=== PATIENT | female | born 1980 | race Caucasian/White ===

== ENCOUNTER → 2024-02-25 10:03 | Outpatient (REF) | payer BC, SELFPAY | LOC: HWRAD 10:03 | PROVIDERS: ATTENDING PHYSICIAN Family Medicine | DX: N83.299 Other ovarian cyst, unspecified side (principal); R35.0 Frequency of micturition | CPT/HCPCS: 76770; 76830; 76856 ==

== ENCOUNTER 2024-06-27 06:15 | Day surgery (SDC) | payer BC, SELFPAY ==
[2024-06-20 09:22] LABS: % Basophils 0.5 % (0-2); % Eosinophils 3.3 % (0-6); % Immature Granulocytes 0.2 % (0-0.5); % Lymphocytes 48.4 % (20.5-51.1); % Monocytes 7.7 % (1.7-9.3); % Neutrophils 39.9 % (42.2-75.2); Absolute Eosinophils 0.2 10^3/uL (0-0.7); Absolute Lymphocytes 2.6 10^3/uL (1.2-3.4); Absolute Monocytes 0.4 10^3/uL (0.1-0.6); Absolute Neutrophils 2.2 10^3/uL (1.4-6.5); Hematocrit 37.9 % (37.0-47.0); Hemoglobin 12.8 g/dL (12.0-16.0); Mean Corp Hgb Conc. 33.8 g/dL (33.0-37.0); Mean Corpuscular Hgb 30.5 pg (27.0-31.0); Mean Corpuscular Volume 90.5 fL (81.0-99.0); Mean Platelet Volume 10.8 fL (7.4-10.4); Nucleated Red Blood Cells % 0 %; Platelet Count 247 10^3/uL (130-400); Red Blood Cell Count 4.19 10^6/uL (4.20-5.40); Red Cell Dist. Width 12.2 % (11.5-14.5); White Blood Cell Count 5.5 10^3/uL (4.8-10.8)
[2024-06-20 09:25] LABS: INR 0.96
[2024-06-20 09:50] LABS: Blood Urea Nitrogen 12 mg/dl (7-17); Carbon Dioxide 24 mmol/L (22-30); Chloride 104 mmol/L (98-107); Glucose 88 mg/dl (70-99); Potassium 4.1 mmol/L (3.5-5.1); Sodium 138 mmol/L (135-145); eGFR > 60.00
[2024-06-20 10:06] LABS: Beta HCG Quantitative < 2.39 mIU/ml
[2024-06-20 13:13] VITALS: BMI 36.6
[2024-06-27] VITALS (10 sets, daily range): BP systolic 107–125; BP diastolic 67–79; BMI 36.6
[2024-06-27] MEDS: NEURONTIN 100 MG PO (07:20)
[2024-06-27] MEDS: TYLENOL 1000 MG PO (07:20)
[2024-06-27] MEDS: NORMOSOL-R/PLASMALYTE-A 1000 IV (07:21)
--- NOTE | 2024-06-27 09:55 | W.IMMPOSTOP ---
Surgical Immed Post Op Note
-
Primary Surgeon: Luciana Parson DO
Assisting Surgeon: BROOKLYN Freeman
Pre-op Diagnosis: Menorrhagia, severe dysmenorrhea, pelvic pain
Post-op Diagnosis: same; abdominal and pelvic adhesions
Procedure Performed: RA TLH b/l salpingectomy, extensive lysis adhesions
Anesthesia Type: general Dr. Benjamin
Specimen / Cultures: uterus, cervix and fallopian tubes
Estimated Blood Loss: 5ml
Urine output: 800ml clear yellow urine
Complications: none
Operative Findings: Normal appearing uterus and cervix. Fallopian tubes with small cysts on surface bilaterally, filmy adhesions to both ovaries. Ovaries with filmy adhesions to pelvic peritoneum and tubes. Large amount of omental adhesions to
abdominal wall extending across abdomen at level of umbilical plane extending all the way to the right side wall, anterior and inferior to umbilicus and toward left side. Adhesions of bladder anteriorly to upper uterus.
Counts correct times 2.
Stable to recovery.
[2024-06-27] MEDS: DILAUDID 0.5 MG IV (10:14)
--- NOTE | 2024-06-27 10:29 | SUR.PHASEI ---
patient received in pacu - moaning - c/o pain and urge to void. Explained that Still was just removed in OR. vss, medicated for pain by [employer] - insists on using bedpan. no results -medicated for pain.
[2024-06-27] MEDS: ZOFRAN 4 MG IV (10:41)
[2024-06-27] MEDS: TORADOL 15 MG IV (11:39)
== END 2024-06-27 14:15 | disposition home or self-care (01) ==
LOC: SDS 06:15
PROVIDERS: ATTENDING PHYSICIAN Obstetrics & Gynecology; FAMILY PHYSICIAN Family Medicine
DX: N92.0 Excessive and frequent menstruation with regular cycle (principal); N94.6 Dysmenorrhea, unspecified; R10.2 Pelvic and perineal pain; N73.6 Female pelvic peritoneal adhesions (postinfective); D25.9 Leiomyoma of uterus, unspecified; N83.8 Other noninflammatory disorders of ovary, fallopian tube and broad ligament; N70.11 Chronic salpingitis; N83.02 Follicular cyst of left ovary; E66.01 Morbid (severe) obesity due to excess calories; Z68.39 Body mass index [BMI] 39.0-39.9, adult
CPT/HCPCS: 58571; 88307; 36415; 80048; 84702; 85025; 85610; 86850; 86900; 86901

== ENCOUNTER 2024-07-21 14:58 | Emergency (ER) | payer BC, SELFPAY ==
[2024-07-21 15:06] VITALS: BP 117/75
[2024-07-21 15:30] LABS: % Basophils 0.8 % (0-2); % Eosinophils 2.7 % (0-6); % Immature Granulocytes 0.2 % (0-0.5); % Lymphocytes 38.4 % (20.5-51.1); % Monocytes 7.7 % (1.7-9.3); % Neutrophils 50.2 % (42.2-75.2); Absolute Basophils 0.1 10^3/uL (0-0.2); Absolute Eosinophils 0.2 10^3/uL (0-0.7); Absolute Lymphocytes 2.6 10^3/uL (1.2-3.4); Absolute Monocytes 0.5 10^3/uL (0.1-0.6); Absolute Neutrophils 3.4 10^3/uL (1.4-6.5); Hematocrit 38.5 % (37.0-47.0); Hemoglobin 13.4 g/dL (12.0-16.0); Mean Corp Hgb Conc. 34.8 g/dL (33.0-37.0); Mean Corpuscular Hgb 31.1 pg (27.0-31.0); Mean Corpuscular Volume 89.3 fL (81.0-99.0); Mean Platelet Volume 10.2 fL (7.4-10.4); Nucleated Red Blood Cells % 0 %; Platelet Count 251 10^3/uL (130-400); Red Blood Cell Count 4.31 10^6/uL (4.20-5.40); Red Cell Dist. Width 12.1 % (11.5-14.5); White Blood Cell Count 6.7 10^3/uL (4.8-10.8)
[2024-07-21 15:43] LABS: ALT (SGPT) 17 U/L (0-35); AST (SGOT) 17 U/L (14-36); Albumin 4.7 g/dl (3.5-5.0); Alkaline Phosphatase 76 U/L (38-126); Blood Urea Nitrogen 15 mg/dl (7-17); Calcium 9.5 mg/dl (8.4-10.2); Carbon Dioxide 25 mmol/L (22-30); Chloride 99 mmol/L (98-107); Glucose 97 mg/dl (70-99); Potassium 4.2 mmol/L (3.5-5.1); Sodium 131 mmol/L (135-145); Total Bilirubin 0.6 mg/dl (0.2-1.3); eGFR > 60.00
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
[2024-07-21 16:51] LABS: Urine Albumin Negative (Neg - Trace); Urine Bilirubin Negative (Negative); Urine Character Clear (Clear); Urine Color Yellow; Urine Glucose Negative (Negative); Urine Ketone Negative (Negative); Urine Leukocyte Negative (Negative); Urine Nitrite Negative (Negative); Urine Occult Blood Negative (Negative); Urine Specific Gravity 1.015 (<1.030); Urine Urobilinogen Negative (Neg - 1+)
[2024-07-21 18:16] VITALS: BP 170/74
== END 2024-07-21 19:24 | disposition home or self-care (01) ==
LOC: EMR 14:58
PROVIDERS: Physician Assistant; EMERGENCY PHYSICIAN Emergency Medicine; FAMILY PHYSICIAN Family Medicine
DX: G89.18 Other acute postprocedural pain (principal); R10.30 Lower abdominal pain, unspecified; Z90.710 Acquired absence of both cervix and uterus; Z90.49 Acquired absence of other specified parts of digestive tract
CPT/HCPCS: 99284; 74177; 80053; 81003; 85025; Q9967

== ENCOUNTER → 2025-02-10 10:09 | Outpatient (REF) | payer OTHER, SELFPAY ==
[2025-02-12 16:01] LABS: Varicella Zoster IgG (VZV) Positive
== END ==
LOC: OHS 10:09
PROVIDERS: ATTENDING PHYSICIAN Nurse Practitioner Family
DX: Z23 Encounter for immunization (principal)
CPT/HCPCS: 36415; 86480; 86787